=== PATIENT | female | born 1960 | race Caucasian/White ===

== ENCOUNTER 2019-12-19 13:43 | Outpatient (CLI) | payer OTHER, SELFPAY ==
--- NOTE | 2019-12-25 14:12 | WPDPFTINT ---
PFT Interpretation PFT Interpretation: This PFT met all criteria for ATS standards and reproducibility FEV/FVC post bronchodilator 85% FEV1 108% FVC 95% TLC 92% RV 84% RV/TLC 34% DLCO 73% when adjusted for alveolar volume but not adjusted for hemoglobin Flow volume loops were normal Impression: No significant obstruction or restriction. Mildly reduced diffusion capacity. In the absence of anemia or pulmonary hypertension, intrinsic lung disease may be still be present. Clinical and radiographic correlation is advised.
== END 2019-12-19 13:44 | disposition home or self-care (01) ==
LOC: ANHPFT 13:48
PROVIDERS: PCP Internal Medicine; Visit Provider Nurse Practitioner
DX: D86.9 Sarcoidosis, unspecified (principal)
CPT/HCPCS: 94060; 94726; 94729